=== PATIENT | female | born 1990 | race Caucasian/White ===

== ENCOUNTER 2022-04-03 09:43 | Emergency (ER) | payer OTHER, SELFPAY ==
[2022-04-03] VITALS (10 sets, daily range): BP systolic 123–142; BP diastolic 76–85; PULSE 71–96; RESP 12–18; TEMP 36.6; O2SAT 93–98; BMI 30.9
--- NOTE | 2022-04-03 09:55 | ED.RN ---
pt denies hearing voices today, but states she was on Wednesday.
--- NOTE | 2022-04-03 10:01 | ED.RN ---
pt states that she is no longer taking prescription medications, just herbs, and i am much better.
--- NOTE | 2022-04-03 10:05 | EX.ED.VIS.PS ---
HPI HPI - Psych History of Present Illness Chief Complaint: Mental Health Informant: patient and spouse/S.O. Narrative Narrative: Patient presents for psychiatric evaluation. Patient has a history of schizophrenia. She has been off prescription medication since December. Patient states that she was taking some herbal medication intermittently. She feels that she is fine and does not need to be on any medication. She states other people were concerned that she was going to hurt herself or someone else so she agreed to come in for evaluation. states that they were in a hospital in [place] on Wednesday. [facility] her [facility] with prescription medication to last her through Wednesday evening. They went back to [facility] [place] on and because the medication had done well and a prescription was given. Patient is now refusing to take that medication and he has not had the prescription filled. He states that she will intermittently talk about hearing voices. She laughs and shakes her head no when I ask about this. [facility] Medical History Schizophrenia Home Medications Unobtainable 04/03/22 [History Last Taken Unknown] Allergy/AdvReac Type Severity Reaction Status Date / Time No Known Allergies Allergy Verified 04/03/22 09:47 Social History Smoking Status: Never smoker ROS ROS ED Constitutional Constitutional ED: Denies chills or fever(s) Eyes Eyes: Denies change in vision ENT ENT ED: Denies sore throat Cardiovascular Cardiovascular: Denies chest pain Respiratory/Chest Respiratory/Chest: Denies cough or dyspnea Gastrointestinal Gastrointestinal: Denies abdominal pain, diarrhea, nausea or vomiting Genitourinary Genitourinary ED: Denies dysuria Musculoskeletal Musculoskeletal: Denies back pain Integumentary Denies rash Neurologic Neurologic: Denies headache(s) or weakness Allergic/Immunologic Allergic/Immunologic ED: Denies urticaria EXAM Physical Exam Const Vital Signs: 04/03/22 09:44 04/03/22 11:17 04/03/22 12:35 Temperature 98 F Temperature Source Temporal Pulse Rate 96 81 Respiratory Rate 18 14 14 Blood Pressure 142/85 H 141/76 H Blood Pressure Mean 104 97 Pulse Ox 98 93 Oxygen Delivery Method Room Air Room Air 04/03/22 14:57 04/03/22 15:21 04/03/22 16:34 Temperature Temperature Source Pulse Rate 71 Respiratory Rate 16 12 12 Blood Pressure 139/82 H Blood Pressure Mean 101 Pulse Ox 98 Oxygen Delivery Method Room Air 04/03/22 17:25 Temperature Temperature Source Pulse Rate 84 Respiratory Rate 14 Blood Pressure 123/76 H Blood Pressure Mean 91 Pulse Ox 97 Oxygen Delivery Method Room Air Positive well nourished and well developed General Appearance ED: well developed HEENT Reports normocephalic and head/scalp atraumatic Eyes PERRL and EOMs intact bilaterally Neck supple Chest Wall inspection of chest normal and palpation of chest normal Resp normal respiratory effort and clear to auscultation bilaterally Cardio regular rate and regular rhythm GI normal to inspection, nondistended, normoactive bowel sounds Palpation: soft Back/Spine no CVA tenderness Extremity normal to inspection Neuro oriented x3 and no sensory deficits noted Sensorium / Orientation: alert Motor Exam: strength 5/5 throughout Psych mental status grossly normal, cooperative and affect normal Appearance: grossly normal Attitude: calm Skin no rashes or lesions noted MDM MDM MDM Narrative Medical decision making narrative: Lab work for medical clearance obtained. Patient evaluated by counseling center staff. Lab Data Attestation: I reviewed the patient's lab results. Labs: Laboratory Results - last 24 hr 04/03/22 04/03/22 04/03/22 10:36 11:11 11:11 WBC 4.6 RBC 4.68 Hgb 13.9 Hct 40.8 MCV 87.2 MCH 29.7 MCHC 34.1 RDW Std Deviation 41.8 RDW Coeff of Anderson 13.1 Plt Count 159 MPV 9.1 Immature Gran % (Auto) 0.200 Neut % (Auto) 62.8 Lymph % (Auto) 27.4 Dubois % (Auto) 8.0 Eos % (Auto) 0.9 Baso % (Auto) 0.7 Absolute Neuts (auto) 2.9 Absolute Lymphs (auto) 1.26 Nucleated RBC % 0 Sodium 137 Potassium 3.7 Chloride 109 H Carbon Dioxide 23.0 Anion Gap 5 BUN 7 Creatinine 0.61 Estim Creat Clear Calc 116.45 Est GFR (MDRD) Af Amer 149 Est GFR (MDRD) Non-Af 123 BUN/Creatinine Ratio 11.6 Glucose 86 Calcium 9.3 Serum , Qual Urine Opiates Screen NEGATIVE Urine Methadone Screen NEGATIVE Ur Barbiturates Screen NEGATIVE Ur Phencyclidine Scrn NEGATIVE Ur Amphetamines Screen NEGATIVE MDMA (Ecstasy) Screen NEGATIVE U Benzodiazepines Scrn NEGATIVE Urine Cocaine Screen NEGATIVE U Cannabinoids Screen NEGATIVE Ur Drug Screen Comment Ethyl Alcohol 04/03/22 04/03/22 11:11 11:11 WBC RBC Hgb Hct MCV MCH MCHC RDW Std Deviation RDW Coeff of Anderson Plt Count MPV Immature Gran % (Auto) Neut % (Auto) Lymph % (Auto) Dubois % (Auto) Eos % (Auto) Baso % (Auto) Absolute Neuts (auto) Absolute Lymphs (auto) Nucleated RBC % Sodium Potassium Chloride Carbon Dioxide Anion Gap BUN Creatinine Estim Creat Clear Calc Est GFR (MDRD) Af Amer Est GFR (MDRD) Non-Af BUN/Creatinine Ratio Glucose Calcium Serum , Qual NEGATIVE Urine Opiates Screen Urine Methadone Screen Ur Barbiturates Screen Ur Phencyclidine Scrn Ur Amphetamines Screen MDMA (Ecstasy) Screen U Benzodiazepines Scrn Urine Cocaine Screen U Cannabinoids Screen Ur Drug Screen Comment Ethyl Alcohol 6.0 Treatment and Re-Evaluation Narrative: Patient's lab work unremarkable. Talk screen negative. Counseling center staff presented and evaluate the patient. With her being off her meds and not caring for herself appropriately with the family concern for harming someone, they do feel she should be placed. While awaiting placement patient did get more agitated here and was trying to leave. We attempted to redirect her multiple times without success. She was given a dose of Geodon. She did not require restraints. At this time patient has been accepted in transfer at [facility]. Discharge Plan Triage Chief Complaint: Mental Health ED Provider: Klaudia Esqueda Dx/Rx/DC Orders Clinical Impression: Schizophrenia Prescriptions: No Action Unobtainable RF: 0 Primary Care Provider: Care Physician,No Primary Referrals: Care Physician,No Primary [Primary Care Provider] - Disposition Disposition: Psychiatric Hospital or Unit Discharge Location: [facility]
[2022-04-03 11:10] LABS: Amphetamine Urine VISTA NEGATIVE (<1000 ng/mL); Barbiturate Urine VISTA NEGATIVE (< 200 ng/mL); Benzodiazepine Urine VISTA NEGATIVE (< 200 ng/mL); Cocaine Urine VISTA NEGATIVE (< 300 ng/mL); Ecstacy Urine VISTA NEGATIVE (< 500 ng/mL); Methadone Urine VISTA NEGATIVE (< 300 ng/mL); PCP Urine VISTA NEGATIVE (< 25 ng/mL); THC Urine VISTA NEGATIVE (< 50 ng/mL); Vista UDS pH Range 5
[2022-04-03 11:23] LABS: Absolute Lymphocyte Count 1.26 X10^3/uL (0.83-4.51); Absolute Neutrophil Count 2.9 X10^3/uL (2.0-7.7); Basophil# 0.03 X10^3/uL; Basophil% 0.7 % (0-1); Eosinophil# 0.04 X10^3/uL; Eosinophils% 0.9 % (0-5); Hematocrit 40.8 % (37-47); Hemoglobin 13.9 g/dL (12.0-15.0); Lymphocyte # 1.26 X10^3/ul (0.83-4.51); Lymphocyte % 27.4 % (19-41); Mean Corp Hgb Conc 34.1 g/dL (32-36); Mean Corpuscular Hgb 29.7 pg (27.0-32.0); Mean Corpuscular Volume 87.2 fL (81-99); Mean Platelet Vol. 9.1 fl (6.2-12.0); Monocyte# 0.37 X10^3/uL; NRBC Flagged by Analyzer 0 % (0-5); Neutrophil # 2.89 X10^3/uL (2.7-7.7); Neutrophil % 62.8 % (47-70); Platelet Count 159 K/mm3 (150-450); RBC Distribution Width CV 13.1 % (11.6-14.6); RBC Distribution Width SD 41.8 fl (35.1-43.9); Red Blood Count 4.68 M/mm3 (4.2-5.4); White Blood Count 4.6 K/mm3 (4.4-11.0)
[2022-04-03 11:29] LABS: Internal QC Validated? YES +Cl - CLEAR BKGD; Pregnancy, Serum, hCG Quali. NEGATIVE Negative
[2022-04-03 11:38] LABS: Anion Gap 5 (5-15); BUN 7 mg/dL (7-18); BUN/Creat Ratio 11.6 RATIO (10-20); Calcium,Total 9.3 mg/dL (8.5-10.1); Chloride 109 mmol/L (98-107); Creatinine, Serum 0.61 mg/dL (0.55-1.02); EST Glomerular Filtration Rate 123 mL/min (>60); Est Glom Filt Rate - Afr Amer 149 mL/min (>60); Estimated Creatinine Clearance 116.45 ml/min; Glucose 86 mg/dL (74-106); Potassium 3.7 mmol/L (3.5-5.1); Sodium Level 137 mmol/L (136-145)
--- NOTE | 2022-04-03 11:59 | CM.ED ---
Social Work Note This SW and Tiny ROME met with Tami Vaz ([phone]) per Tami's request. Tami states that he has concerns for pt and states he thinks pt needs to go to a [facility]. Tami states that pt has made recent statements (within the last week) that her needs to , things would be better if he , and mentioned burning the house down. Pt has also stated that she needs to go home and get ready for the . Tami states that pt doesn't want to get any shots as pt believe there are chips in the syringes. Tami states that pt will watch TV and commercials will be telling stories to her. Tami states that on Wednesday pt was at [facility] and pt was taken to [facility] to get medically cleared. Tami states pt was discharged home from [facility]. Tami states that on Wednesday pt went to [facility] and at that time was agreeable to taking medications. Tami was updated that pt will be evaluated. Krystina Mendoza SENIOR IT SECURITY ANALYST, INSURANCE POLICY CLERK
[2022-04-03] MEDS: Ziprasidone IM 20 MG/ML VIAL IM (15:03)
--- NOTE | 2022-04-03 18:34 | ED.RN ---
EMS IN DEPARTMENT
--- NOTE | 2022-04-03 19:23 | CM.ED ---
ED Note ED received call from Sam at [facility]. He said that patient is going to [address] at [address] at [facility]. He said that the pink slip has to say [facility] and that pink slip needs to be faxed to [phone]. Sam said that he told this information to the stapler coil unit Gricelda. RN to RN is [phone]. ED asked about if patient had been Geodon was there an period of time prior to her being transferred and he voiced he didn't know. Gricelda the stapler coil unit stated that she had faxed the pink slip to [facility] already. Gricelda voiced that the transfer sheet and pink slip had already been completed by MD. ED called Chris at [facility] and advised her that patient was accepted by [facility]. ED spoke to Reynaldo to see if the accepting MD was on the transfer form and no information on MD on the form. ED called [facility]. Accepting MD is MD Jules. ED called Chris at [facility] and advise that the accepting MD is Dhara. ED sent text to Ashely advising her of the accepting MD's name. Plan: [facility] on a single case agreement Tiny ECHEVARRIA
== END 2022-04-03 18:44 ==
PROVIDERS: Emergency Provider Emergency Medicine; Visit Provider Emergency Medicine
DX: F20.9 Schizophrenia, unspecified (principal); Z91.14 Patient's other noncompliance with medication regimen
CPT/HCPCS: 36415; 80048; 80307; 82077; 84703; 85025; 87426; 96372; 99285; J3486